=== PATIENT | female | born 1980 | race Native Hawaiian/Other Pacific Islander ===

== ENCOUNTER 2017-08-13 19:52 | Emergency (ER) | payer BC ==
--- NOTE | 2017-08-13 21:14 | ED PDOC ---
Arrival/HPI - General Historian: Patient - History of Present Illness Time/Duration: Other Symptom Onset: Sudden (Today) Symptom Course: Improving - General Chief Complaint: Lower Extremity Problem/Injury Time Seen by Provider: 08/13/17 20:33 - History of Present Illness Narrative History of Present Illness (Text): 08/13/17 21:11 36-year-old female presents today with right knee pain status post injury. Patient states she has a prior history of multiple knee dislocations in the past. Patient states today she twisted and her patella popped out of place. Patient states she popped it back into place and went to an urgent care center for evaluation. Patient states the urgent care centers x-ray machine was down so she came to the emergency room for x-ray. She is refusing any medications for pain. She denies numbness weakness or tingling in the extremity. No chest pain or shortness of breath. No other complaints (Chata Delvalle) Past Medical History - Provider Review Nursing Documentation Reviewed: Yes - Travel History Have you recently traveled outside [place] w/in the past 3 mons?: No - Infectious Disease Hx of Infectious Diseases: None - Tetanus Immunization Tetanus Immunization: Unknown - Reproductive Menopause: No - Cardiac Hx Pacemaker: No - Neurological Hx Paralysis: No - Hematological/Oncological Hx Blood Transfusions: Yes Hx Blood Transfusion Reaction: No - Psychiatric Hx Substance Use: No - Anesthesia Hx Anesthesia Reactions: No Hx Malignant Hyperthermia: No Family/Social History - Physician Review Nursing Documentation Reviewed: Yes Family/Social History: Unknown Family HX Smoking Status: Never Smoked Hx Alcohol Use: Yes (2-3 TIMES A MONTH) Hx Substance Use: No Allergies/Home Meds Allergies/Adverse Reactions: Allergies No Known Allergies Allergy (Verified 08/05/17 14:36) Home Medications: Home Meds Medication Instructions Recorded Confirmed Vitamins 1 tab PO DAILY 08/05/17 08/05/17 Review of Systems - Review of Systems Constitutional: absent: Fatigue, Fevers Respiratory: absent: SOB, Cough Cardiovascular: absent: Chest Pain, Palpitations Gastrointestinal: absent: Abdominal Pain, Nausea, Vomiting Musculoskeletal: Arthralgias Skin: absent: Rash, Pruritis Neurological: absent: Headache, Dizziness Physical Exam Vital Signs Reviewed: Yes Temperature: Afebrile Blood Pressure: Normal Pulse: Regular Respiratory Rate: Normal Appearance: Positive for: Well-Appearing, Non-Toxic, Comfortable Pain Distress: None Mental Status: Positive for: Alert and Oriented X 3 - Systems Exam Head: Present: Atraumatic Mouth: Present: Moist Mucous Membranes Neck: Present: Normal Range of Motion Respiratory/Chest: Present: Clear to Auscultation Cardiovascular: Present: Regular Rate and Rhythm Lower Extremity: Present: NORMAL PULSES, Normal ROM, Tenderness (right knee; + minimal tenderness over anterior aspect of knee; full rom of knee. ), Neurovascularly Intact, Capillary Refill < 2 s. No: CALF TENDERNESS, Swelling, Erythema, Deformity Neurological: Present: GCS=15 Skin: Present: Warm, Dry, Normal Color. No: Rashes Psychiatric: Present: Alert, Oriented x 3 Vital Signs Temp Pulse Resp BP Pulse Ox 08/13/17 21:17 98.8 F 80 18 95/59 L 99 Medical Decision Making ED Course and Treatment: 08/13/17 21:13 Patient nontoxic well-appearing in no distress with stable vital signs X-rays of the right knee: No fracture Patient refused medications for pain Patient placed in knee immobilizer. Crutches given for ambulation I discussed all results with patient advised to followup with the orthopedist for the next 2 days. Return if symptoms worsen persist or new symptoms develop i advised the patient that although the xrays show no fracture; there is still a possibility for ligamentous or tendon injury the patient must see the orthopedist for further evaluation. Patient verbalizes understanding of discharge instructions and need for immediate followup. Impression: knee pain Motrin every 6 hours as needed for pain Rest, ice, compression, elevation Use crutches for ambulation Followup with the orthopedist within the next 2 days Followup with primary care physician within the next 2 days Return if symptoms worsen persist or if new symptoms develop (Chata Delvalle) - RAD Interpretation Radiology Orders: 08/13/17 20:33 KNEE W PATELLA RIGHT 3 VIEW [RAD] Stat Disposition/Present on Arrival - Present on Arrival Any Indicators Present on Arrival: No History of DVT/PE: No History of Uncontrolled Diabetes: No Urinary Catheter: No History of Decub. Ulcer: No History Surgical Site Infection Following: None - Disposition Have Diagnosis and Disposition been Completed?: Yes Disposition Time: 21:14 Patient Plan: Discharge - Disposition Diagnosis: Patellar dislocation, Knee pain Disposition: HOME/ ROUTINE Condition: GOOD Discharge Instructions (ExitCare): Patellar Dislocation (ED) Additional Instructions: Motrin every 6 hours as needed for pain Rest, ice, compression, elevation Use crutches for ambulation Followup with the orthopedist within the next 2 days Followup with primary care physician within the next 2 days Return if symptoms worsen persist or if new symptoms develop Prescriptions: Ibuprofen [Motrin Tab] 400 mg PO Q6H PRN #20 tab PRN Reason: Pain, Mild (1-3) Referrals: Thea Sethi MD [Primary Care Provider] - Follow up with primary Valerio Hudson DO [Staff Provider] - Follow up with primary Forms: [employer] (Turkmen), WORK NOTE
[2017-08-13 21:18] VITALS: BP 95/59; PULSE 80; RESP 18; TEMP 98.8; O2SAT 99
--- NOTE | 2017-08-14 11:03 | RAD ---
PROCEDURE: Right Knee Radiographs. HISTORY: knee pain COMPARISON: None. FINDINGS: BONES: Normal. No fracture. A sub cm well corticated bony densities seen in the soft tissues medial to patella and anterior to the medial femoral condyles potentially representing a joint mouse or accessory ossicle. JOINTS: Normal. No osteoarthritis. JOINT EFFUSION: None. OTHER FINDINGS: None. IMPRESSION: No acute fracture dislocation. Accessory ossicle or possible joint mass seen medial to the patella. Correlation with CT or MRI can be performed for additional characterization.
== END 2017-08-13 21:28 | disposition home or self-care (01) ==
LOC: ED 19:52
DX: M25.561 Pain in right knee (principal); S83.004A Unspecified dislocation of right patella, initial encounter; X50.1XXA Overexertion from prolonged static or awkward postures, initial encounter

== ENCOUNTER 2017-08-29 10:39 | Day surgery (SDC) | payer BC ==
[2017-08-29] MEDS ORDERED: Propofol 10 mg/ml Inj (20 ML) ONE (12:23)
[2017-08-29 13:09] VITALS: O2SAT 100
[2017-08-29 13:41] VITALS: BP 101/66; PULSE 66; RESP 18; TEMP 98.3
== END 2017-08-29 14:26 | disposition home or self-care (01) ==
LOC: ENDO 10:39
PROVIDERS: ATTEND Internal Medicine
DX: K64.8 Other hemorrhoids (principal); Q43.8 Other specified congenital malformations of intestine; K29.50 Unspecified chronic gastritis without bleeding
CPT/HCPCS: 43239; 45378; 84703; 88305; 88342; J2001; J2704; J3010; J7040